=== PATIENT | female | born 1995 | race Caucasian/White ===

== ENCOUNTER 2018-09-21 09:51 | Emergency (ER) | payer SELFPAY ==
[2018-09-21] MEDS ORDERED: Ibuprofen TAB* 800 MG PO ONE (10:22)
--- NOTE | 2018-09-21 10:23 | ED ---
Throat Pain/Nasal Congestion - HPI Summary HPI Summary: Pt. is a 23-year-old female who presents emergency department for sore throat and fever that started yesterday. She denies past medical history. Immunizations are up-to-date. Patient states she is visiting her boyfriend who goes to school in the area. Pt. denies vomiting, diarrhea, abdominal pain, urinary symptoms, cough, headache, neck pain. Symptoms are mild in severity. Swallowing makes symptoms worse. Nothing makes symptoms better. States she took Advil yesterday but not today. Denies sick contacts. - History of Current Complaint Chief Complaint: EDFluSymptoms Time Seen by Provider: 09/21/18 10:18 Hx Obtained From: Patient - Allergies/Home Medications Allergies/Adverse Reactions: Allergies Allergy/AdvReac Type Severity Reaction Status Date / Time No Known Allergies Allergy Verified 09/21/18 10:06 PMH/Surg Hx/FS Hx/Imm Hx Previously Healthy: Yes Infectious Disease History: No Infectious Disease History: Denies: Traveled Outside the [place] in Last 30 Days - Family History Known Family History: Positive: Other - Noncontributory - Social History Occupation: Student Lives: With Family Review of Systems Positive: Fever, Chills Eyes: Negative Positive: Sore Throat Cardiovascular: Negative Respiratory: Negative Negative: Shortness Of Breath, Cough Gastrointestinal: Negative Negative: Abdominal Pain, Vomiting, Diarrhea, Nausea Genitourinary: Negative Positive: Myalgia Skin: Negative Negative: Rash Neurological: Negative Negative: Headache All Other Systems Reviewed And Are Negative: Yes Physical Exam Triage Information Reviewed: Yes Vital Signs On Initial Exam: Initial Vitals Temp Pulse Resp BP Pulse Ox 102.3 F 113 20 127/81 97 09/21/18 10:02 09/21/18 10:02 09/21/18 10:02 09/21/18 10:02 09/21/18 10:02 Vital Signs Reviewed: Yes Appearance: Positive: Well-Nourished - Pt. lying in bed, appears to feel unwell but nontoxic. Skin: Positive: Warm, Dry Head/Face: Positive: Normal Head/Face Inspection Eyes: Positive: Normal, EOMI ENT: Positive: Pharyngeal erythema, TMs normal, Tonsillar swelling, Tonsillar exudate, Uvula midline, Other - No trismus or muffled voice. No evidence of abscess Neck: Positive: Supple, Enlarged Nodes @ - bilateral anterior Respiratory/Lung Sounds: Positive: Clear to Auscultation, Breath Sounds Present Cardiovascular: Positive: Normal, RRR Abdomen Description: Positive: Nontender, Soft Neurological: Positive: Normal, CN Intact II-III Psychiatric: Positive: Affect/Mood Appropriate Diagnostics - Vital Signs Vital Signs Temp Pulse Resp BP Pulse Ox 09/21/18 10:02 102.3 F 113 20 127/81 97 - Laboratory Lab Statement: Any lab studies that have been ordered have been reviewed, and results considered in the medical decision making process. EENT Course/Dx - Course Course Of Treatment: Pt. presenting for sore throat and fever. Temp. 102.3F and HR 113. O2 saturation is 97% which is normal. Pt given tylenol and motrin for fever and pain. Rapid strep and mono negative. Fever and HR have improved. Pt. tolerating po. Given fever, excudates, and lymphadenopathy will treat with amoxicillin. Advised to increase fluids and rest. Tylenol or motrin for fever and pain. To f.u with [facility] and return to er if sxs change or worsen. Pt. understands and agrees with plan. - Differential Diagnoses Differential Diagnoses: Abrasion, Influenza, Geovanny's Angina, Mastoiditis, Otitis Media, Pharyngitis, Tonsilitis - Diagnoses Provider Diagnoses: Bacterial pharyngitis Discharge - Sign-Out/Discharge Documenting (check all that apply): Patient Departure - Discharge Plan Condition: Good Disposition: HOME Prescriptions: Amoxicillin PO (*) [Amoxicillin 500 MG CAP*] 500 mg PO Q12H #20 cap Patient Education Materials: Pharyngitis (ED) Referrals: [facility] [Outside] Additional Instructions: Schedule a follow up appointment with the [facility] Increase fluids and rest Rotate between tylenol and ibuprofen (motrin) every 3 hours for fever and pain control Antibiotic as directed Return to ER if symptoms change or worsen - Billing Disposition and Condition Condition: GOOD Disposition: Home
[2018-09-21] MEDS ORDERED: Acetaminophen TAB* 325 MG PO ONE (12:01)
[2018-09-21 13:07] VITALS: BP 123/71
== END 2018-09-21 13:07 | disposition home or self-care (01) ==
LOC: ED 09:51
DX: R50.9 Fever, unspecified (principal); J02.9 Acute pharyngitis, unspecified
CPT/HCPCS: 36415; 86308; 87651; 99282; A9270-GY